=== PATIENT | female | born 1965 | race Caucasian/White ===

== ENCOUNTER → 2018-10-04 | Outpatient (CLI) | payer OTHER ==
[~2018-10-04] MED LIST: IOPAMIDOL (ISOVUE-300) 100 ML BTL ONE
== END ==
LOC: CIMAGING 12:00
PROVIDERS: ATTEND Family Medicine
DX: K57.32 Diverticulitis of large intestine without perforation or abscess without bleeding (principal); N88.9 Noninflammatory disorder of cervix uteri, unspecified
CPT/HCPCS: 74178-PO; Q9967

== ENCOUNTER → 2018-10-17 | Outpatient (CLI) | payer OTHER | LOC: EMCIMAGING 08:05 | PROVIDERS: ATTEND Family Medicine | DX: R19.00 Intra-abdominal and pelvic swelling, mass and lump, unspecified site (principal) | CPT/HCPCS: 76856-PN ==

== ENCOUNTER → 2018-10-19 | Outpatient (CLI) | payer OTHER | LOC: EMCIMAGING 07:46 | PROVIDERS: ATTEND Family Medicine | DX: R19.00 Intra-abdominal and pelvic swelling, mass and lump, unspecified site (principal); N80.0 Endometriosis of uterus | CPT/HCPCS: 72197-PN ==

== ENCOUNTER → 2018-12-27 | Outpatient (CLI) | payer OTHER | LOC: EMCIMAGING 10:03 ==